=== PATIENT | male | born 1975 | race Caucasian/White ===

== ENCOUNTER 2017-11-28 20:49 | Emergency (ER) | payer OTHER ==
[~2017-11-28] VITALS: Ht 180.3 cm; Wt 87.9 kg
[~2017-11-28 20:49] MED LIST: CLIN150 PO; PSEU30TA PO; SULF1TAB47 PO; TYLE500T PO
[2017-11-28 21:03] VITALS: BP 145/82; PULSE 82; RESP 16; TEMP 98.8; O2SAT 99
[2017-11-28 23:50] VITALS: BP 131/81; PULSE 86; RESP 18; O2SAT 98
[2017-11-29] MEDS ORDERED: NAPR500T2 PO (00:26)
[2017-11-29] MEDS ORDERED: GABA300C5 PO (00:26)
[2017-11-29] MEDS ORDERED: BACL20TA PO (00:26)
--- NOTE | 2017-11-29 00:51 | RADRPT ---
EXAM DATE/TIME: 11/29/2017 00:15 [place] COMPARISON: No previous studies available for comparison. INDICATIONS : Lower back numbness post lidocaine shot to right sciatic. RADIATION DOSE: 39.78 CTDIvol (mGy) MEDICAL HISTORY : None SURGICAL HISTORY : None. ENCOUNTER: Initial ACUITY: 3 days PAIN SCALE: 0/10 LOCATION: Lumbar spine. TECHNIQUE: Volumetric scanning of the lumbar spine was performed. Multiplanar reconstructions in the sagittal, coronal and oblique axial planes were performed. Using automated exposure control and adjustment of the mA and/or kV according to patient size, radiation dose was kept as low as reasonably achievable t o obtain optimal diagnostic quality images. DICOM format image data is available electronically for review and comparison. FINDINGS: VERTEBRAE: Normal vertebral body height. ALIGNMENT: No evidence of subluxation. T12-L1: The thecal sac has a normal diameter. No evidence of disc bulge or protrusion. The neural foramina are patent bilaterally. L1-L2: The thecal sac has a normal diameter. No evidence of disc bulge or protrusion. The neural foramina are patent bilaterally. L2-L3: The thecal sac has a normal diameter. No evidence of disc bulge or protrusion. The neural foramina are patent bilaterally. L3-L4: The thecal sac has a normal diameter. No evidence of disc bulge or protrusion. The neural foramina are patent bilaterally. L4-L5: Disc height within normal limits. Minimal bulging of the annulus and mild bilateral facet osteoarthri tis with thickening of the ligamentum flavum. No significant foraminal or spinal stenosis. L5-S1: Mild to moderate loss of height of the disc. There is sclerosis and circumferential osseous bridging of the vertebral body endplates. A small moderate broad right foraminal/lateral disc protrusion is pr esent and causes moderate right foraminal stenosis. Just below the disc level is an increased density epidural structure that measures approximately 5 x 12 x 10 mm in size, series 405 image 53 and serie s 400 image 35. This is presumably an extruded/disc fragment. Small, focal epidural hematoma would al so be in the differential. There is associated moderate short segment spinal stenosis. CONCLUSION: 1. Abnormal L5/S1 level with a right foraminal protrusion with moderate stenosis and an apparent infe riorly extruded disc fragment causing short segment spinal stenosis. Nonemergent lumbar spine MRI wit h and without contrast recommended. 2. Mild facet degenerative changes at L4/L5 and L5/S1. Terrance Mtz MD on November 29, 2017 at 0:42 Board Certified Radiologist. This report was verified electronically.
[2017-11-29 00:55] VITALS: BP 104/61; PULSE 77; RESP 16; O2SAT 98
[2017-11-29] MEDS ORDERED: KETOROLAC TROMETHAMINE 60 MG/2 ML (IM) VIAL IM ONE (01:50)
[2017-11-29] MEDS ORDERED: DEXAMETHASONE SOD PHOS 20 MG/5 ML VIAL IM ONE (01:50)
[2017-11-29] MEDS ORDERED: ORPHENADRINE INJ 60 MG/2 ML AMP IM ONE (01:50)
[2017-11-29 02:00] VITALS: BP 140/83; PULSE 70; RESP 18; O2SAT 98
[2017-11-29 02:25] VITALS: BP 136/85
--- NOTE | 2017-11-29 07:22 | PD ---
HPI Chief Complaint: Musculoskeletal Complaint Time Seen by Provider: 00:06 Travel History International Travel<30 days: No Contact w/Intl Traveler<30days: No Traveled to known affect area: No History of Present Illness HPI 42-year-old male with sciatica pain 3 weeks recently seen by his primary care provider for lidocaine injection to the right buttock area. Patient states initially had paresthesia to the buttock and to the groin area but due to persistent numbness numbness to the buttock with some mild numbness to the right heel that he is noted intermittently over the past 3 weeks and sensation of decreased urine output notified his physician who encouraged him to come to the emergency room for evaluation and possible CT. Patient denies any injury or fall. No fever or chills. No bowel incontinence. Patient rates pain at 6/ 10 in intensity. [facility] Past Medical History Narrative Medical Tonsillectomy; alcohol; nursing notes reviewed Past Surgical History Oral Surgery: Yes (WISDOM TEETH EXTRACTION) Tonsillectomy: Yes Social History Alcohol Use: Yes (1 DRINK A WEEK) Tobacco Use: Yes (CIGARETTES, 1PPM) Substance Use: No Allergies-Medications (Allergen,Severity, Reaction): Coded Allergies: No Known Allergies (Verified Allergy, Mild, 12/18/07) Reported Meds & Prescriptions Reported Meds & Active Scripts Active Reported Naproxen 500 Mg Tab 500 Mg PO BID Gabapentin 300 Mg Cap 300 Mg PO TID Baclofen 20 Mg Tab 20 Mg PO TID Review of Systems Except as stated in HPI: all other systems reviewed are Neg Physical Exam Narrative GENERAL: Well-developed well-nourished male no acute distress or respiratory distress SKIN: Warm and dry. HEAD: Normocephalic. EYES: No scleral icterus. No injection or drainage. NECK: Supple, trachea midline. No JVD or lymphadenopathy. CARDIOVASCULAR: Regular rate and rhythm without murmurs, gallops, or rubs. RESPIRATORY: Breath sounds equal bilaterally. No accessory muscle use. GASTROINTESTINAL: Abdomen soft, non-tender, nondistended. Rectal exam: Normal sphincter tone MUSCULOSKELETAL: No cyanosis, or edema. BACK: Nontender without obvious deformity. Mild increased discomfort with straight leg raising maneuver to right lower extremity no discomfort with left straight leg raising maneuver. DTRs 2+ and equal without clonus. Sensory exam intact except for mild decreased light touch sensation to lateral aspect of right foot which patient states is been present 3 weeks and not related to his injection symptoms no CVA tenderness. Data Data Last Documented VS Vital Signs Date Time Temp Pulse Resp B/P (MAP) Pulse Ox O2 Delivery O2 Flow Rate FiO2 11/29/17 02:25 67 18 136/85 (102) 98 11/29/17 02:00 Room Air 11/28/17 21:[address] Lumb Spine W/O Contrast (11/29/17 ) Dexamethasone Inj (Decadron Inj) (11/29/17 01:50) Ketorolac Inj (Toradol Inj) (11/29/17 01:50) Orphenadrine Inj (Norflex Inj) (11/29/17 01:50) Ed Discharge Order (11/29/17 03:06) [facility] Medical Decision Making Medical Screen Exam Complete: Yes Emergency Medical Condition: Yes Medical Record Reviewed: Yes Interpretation(s) Last Impressions Lumbar Spine CT 11/29/17 0000 Signed Impressions: Service Date/Time: Wednesday, November 29, 2017 00:15 - CONCLUSION: 1. Abnormal L5/S1 level with a right foraminal protrusion with moderate stenosis and an apparent inferiorly extruded disc fragment causing short segment spinal stenosis. Nonemergent lumbar spine MRI with and without contrast recommended. 2. Mild facet degenerative changes at L4/L5 and L5/S1. Terrance Mtz MD Vital Signs Date Time Temp Pulse Resp B/P (MAP) Pulse Ox O2 Delivery O2 Flow Rate FiO2 11/29/17 02:25 67 18 136/85 (102) 98 11/29/17 02:00 70 18 140/83 (102) 98 Room Air 11/29/17 00:55 77 16 104/61 (75) 98 Room Air 11/28/17 23:50 18 11/28/17 23:50 86 18 131/81 (98) 98 Room Air 11/28/17 21:03 98.8 82 16 145/82 (103) 99 Differential Diagnosis Lumbar disc disease, lumbar radiculopathy, H&P, sciatica, also to consider cauda equina Narrative Course Patient without motor weakness or sensory loss presents with subjective complaint of decreased sensation after lidocaine injection on presents now for further evaluation has mild increased discomfort with right straight leg raising imaging study ordered and patient administered Decadron 10 mg IM and Toradol [address] remarkable for abnormal L5-S1 protrusion with some moderate stenosis and inferiorly protruding disc fragment with some segmental spinal stenosis nonemergent lumbar MR recommended and then mild facet disease at L4-5 as well as L5-S1 this information was shared with the patient patient also given injection of Norflex Patient is clinically stable for outpatient management and close follow-up with his primary care provider and may require MR at future time Patient symptomatically improved after steroid and Toradol injection Diagnosis Primary Impression: Radiculopathy of lumbar region Referrals: Terrance Nava DO (PCP) call for appointment Landon Cummins MD (Family) call for appointment Patient Instructions: General Instructions, Lumbar Radiculopathy (ED) Departure Forms: Tests/Procedures Additional Instructions: Follow-up with your primary care provider complete dose of Medrol Dosepak and use as needed Robaxin follow-up with primary in 2 days no work 3 days apply moist heat intermittently to low back area return to the emergency department for any concerns or change in condition Med/Other Pt SpecificInfo: No Change to Meds Disposition: 01 DISCHARGE HOME Lexis Jacobsen MD Nov 29, 2017 07:22
== END 2017-11-29 02:35 | disposition home or self-care (01) ==
LOC: PHED 20:49
DX: M51.17 Intervertebral disc disorders with radiculopathy, lumbosacral region (principal); M48.07 Spinal stenosis, lumbosacral region; F17.210 Nicotine dependence, cigarettes, uncomplicated; Z79.899 Other long term (current) drug therapy
CPT/HCPCS: 72131; 96372; 99283; J1100; J1885; J2360